=== PATIENT | male | born 1935 | race Caucasian/White ===

== ENCOUNTER 2024-01-14 04:07 | Day surgery (SDC) | payer OTHER ==
[2024-01-10 12:52] VITALS: BMI 22.8
[2024-01-14 06:16] VITALS: TEMP 97.8
[2024-01-14] MEDS ORDERED: FENTANYL CITRATE/PF 50 MCG/ML VIAL ONE (08:19)
[2024-01-14] MEDS ORDERED: ONDANSETRON 4 MG/2 ML VIAL ONE (08:19)
[2024-01-14] MEDS ORDERED: MIDAZOLAM HCL 2 MG/2 ML SINGLE DOSE VIAL ONE (08:19)
[2024-01-14 09:49] VITALS: BP 139/81; PULSE 94; RESP 18
== END 2024-01-14 09:55 | disposition home or self-care (01) ==
LOC: JASU-SURG 04:07
PROVIDERS: ATTEND Urology
PROC: 0TF4XZZ Fragmentation in Left Kidney Pelvis, External Approach (ICD-10-PCS; principal; 2024-01-14 08:30)
DX: N20.0 Calculus of kidney (principal)

== ENCOUNTER 2024-03-10 04:13 | Day surgery (SDC) | payer OTHER ==
[2024-03-03 12:18] VITALS: BMI 22.8
[2024-03-10] MEDS ORDERED: MIDAZOLAM HCL 2 MG/2 ML SINGLE DOSE VIAL ONE (08:10)
[2024-03-10 09:48] VITALS: BP 126/79; PULSE 96; RESP 18; TEMP 96.8
== END 2024-03-10 09:50 | disposition home or self-care (01) ==
LOC: JASU-SURG 04:13
PROVIDERS: ATTEND Urology
PROC: 0TF3XZZ Fragmentation in Right Kidney Pelvis, External Approach (ICD-10-PCS; principal; 2024-03-10 08:30)
DX: N20.0 Calculus of kidney (principal)